=== PATIENT | male | born 1985 | race Caucasian/White ===

== ENCOUNTER 2022-10-03 15:03 | Emergency (ER) | payer OTHER ==
[~2022-10-03] VITALS: Ht 172.7 cm; Wt 95.4 kg
== END 2022-10-03 16:39 | disposition home or self-care (01) ==
LOC: ED 15:03
PROC: 0HQ1XZZ Repair Face Skin, External Approach (ICD-10-PCS; principal; 2022-10-03)
DX: G40.909 Epilepsy, unspecified, not intractable, without status epilepticus (principal); S05.42XA Penetrating wound of orbit with or without foreign body, left eye, initial encounter; X58.XXXA Exposure to other specified factors, initial encounter
CPT/HCPCS: 12011; 99284-25